=== PATIENT | male | born 1960 | race Caucasian/White ===

== ENCOUNTER 2024-02-27 13:39 | Emergency (ER) | payer MEDICAID ==
[~2024-02-27] VITALS: Ht 165.1 cm; Wt 75.0 kg
[2024-02-27 14:00] LABS: BASOPHILS # (AUTO) 0.1 X10'3 (0-0.2); EOSINOPHILS # (AUTO) 0.2 X10'3 (0-0.9); EOSINOPHILS % (AUTO) 2.2 % (0-6); HEMATOCRIT 46.6 % (42.0-52.0); HEMOGLOBIN 15.8 g/dl (14.0-17.9); LYMPHOCYTES # (AUTO) 2.2 X10'3 (1.1-4.8); LYMPHOCYTES % (AUTO) 30.1 % (21-51); MEAN CORPUSCULAR HEMOGLOBIN 29.9 PG (27.0-31.0); MEAN CORPUSCULAR HGB CONC 33.9 g/dL (33.0-36.5); MEAN PLATELET VOLUME 7.7 FL (7.4-10.4); MONOCYTES # (AUTO) 0.6 X10'3 (0-0.9); MONOCYTES % (AUTO) 7.8 % (2-12); NEUTROPHILS # (AUTO) 4.4 X10'3 (1.8-7.7); NEUTROPHILS % (AUTO) 58.9 % (42-75); PLATELET COUNT 322 X10'3 (140-440); RED CELL DISTRIBUTION WIDTH 14.5 % (11.5-14.5); WHITE BLOOD COUNT 7.4 X10'3 (4.5-11.0)
[2024-02-27 14:18] LABS: ALANINE AMINOTRANSFERASE 26 U/L (12-78); ALBUMIN 3.7 G/DL (3.4-5.0); ALBUMIN/GLOBULIN RATIO 0.9 (1.1-1.5); ALKALINE PHOSPHATASE 70 IU/L (46-116); ANION GAP 6 (8-16); ASPARTATE AMINO TRANSFERASE 19 U/L (10-37); BILIRUBIN,TOTAL 0.6 MG/DL (0.1-1.0); BLOOD UREA NITROGEN 9 MG/DL (7-18); BUN/CREATININE RATIO 9.9 (10.0-20.0); CALCIUM 7.9 MG/DL (8.5-10.1); CHLORIDE 104 MMOL/L (99-107); CREATININE 0.91 MG/DL (0.60-1.10); GLUCOSE 123 MG/DL (70-104); POTASSIUM 3.1 MMOL/L (3.5-5.1); SODIUM 138 MMOL/L (135-145); TOTAL CARBON DIOXIDE 28.3 MMOL/L (24-32); TOTAL PROTEIN 7.7 G/DL (6.4-8.2); eCRCL 74 ML/MIN; eGFR 85 ML/MIN
[2024-02-27 14:24] LABS: PRO BRAIN NATRIURETIC PEPTIDE 434 PG/ML (0-125)
[2024-02-27] MEDS: POTASSIUM BICARB 20meq eff tab 20 MEQ TABLET.EFF PO ONE (16:29)
[2024-02-27] MEDS: aspirin 325mg tablet PO ONE (16:30)
[2024-02-27 16:34] LABS: APTT 25 SECONDS (22-32); PROTHROMBIN TIME 10.9 SECONDS (9.0-12.0)
[2024-02-27 18:08] VITALS: BP 122/97; PULSE 109; RESP 20; TEMP 97.3; O2SAT 95
[2024-02-27] MEDS ORDERED: METO-395 PO (19:18)
== END 2024-02-27 19:45 | disposition home or self-care (01) ==
LOC: ER 13:39
DX: I48.91 Unspecified atrial fibrillation (principal); E87.6 Hypokalemia; F10.90 Alcohol use, unspecified, uncomplicated
CPT/HCPCS: 36415; 71045; 80053; 80320; 83690; 83735; 83880; 84484; 85025; 85610; 85730; 93005; 99285

== ENCOUNTER 2025-11-03 17:44 | Inpatient (IN) | payer MEDICAID ==
[~2025-11-03] VITALS: Ht 165.1 cm; Wt 76.4 kg
[~2025-11-03 17:44] MED LIST: METO-395 PO
[2025-11-03 17:57] VITALS: TEMP 98.8
--- NOTE | 2025-11-03 18:01 | ELECTROCARDIOGRAPH REPORT ---
[facility] Test Date: 2025-11-03 Test Time: 17:53:07 Pat Name: UGO ADAMS Department: EMERGENCY ROOM Patient ID: [id number] Room: Gender: M Material Processor: milton : 1960 Requested By: IBAN NELSON Order Number: [id number] Reading MD: Measurements Intervals [place] Rate: 124 P: 0 [place]: 0 QRS: -22 QRSD: 107 T: 38 QT: 339 QTc: 487 Interpretive Statements Atrial fibrillation RSR' in V1 or V2, probably normal variant Inferior infarct, old Abnormal lateral Q waves Please click the below link to view image of tracing.
[2025-11-03 18:13] LABS: MEAN PLATELET VOLUME 7.6 FL (7.4-10.4); RED CELL DISTRIBUTION WIDTH 13.8 % (11.5-14.5)
--- NOTE | 2025-11-03 18:23 | RADIOLOGY REPORT ---
EXAM: DI CHEST,SINGLE VIEW HISTORY: CP TECHNIQUE: 1 view of the chest COMPARISON: DI CHEST,SINGLE VIEW on DOS: 02/27/24 FINDINGS/IMPRESSION: LUNGS: No pleural effusion, consolidation, or pneumothorax. MEDIASTINUM: Mild cardiomegaly. BONES: No acute osseous abnormality. OTHER: None.
--- NOTE | 2025-11-03 19:04 | Physician Documentation ---
History of Present Illness ~ Chief Complaint: Rapid Heartbeat Stated Complaint: IRREGULAR HEARTRATE Time Seen by MD: 18:04 Mode of Arrival: POV, Ambulatory HPI This is a pleasant 64-year-old gentleman with a known history of atrial fibrillation, status post ablation done in [place], no longer taking his anticoagulation or antiarrhythmics, presents for evaluation of three days of p alpitations, irregular heart rate similar to prior AFib. No obvious trigger, trauma, provocation. No palliating or aggravating factors. He does report hearing changes and whooshing in his ears when he stands up. He denies any chest pain difficulty breathing. Denies any mela syncope. Did not attempt to treat his symptoms. Denies any concerns for tobacco, alcohol or illicit substances use. Medication Reconciliation Allergies: Coded Allergies: No Known Allergies (Unverified , 11/03/25) Scheduled Metoprolol Succinate (Metoprolol Succinate), 1 TAB PO DAILY Past Medical History Past Medical History: Atrial Fibrillation Alcohol Use: Heavy Lives In: Home Review of Systems ROS 10 point review of systems was performed and unless noted above in HPI is negative for acute process/complaint. Physical Exam Vital Signs: Temperature: 98.8, Source: Oral, Heart Rate: 118, Respiratory Rate: 16, BP: 117/86, Pulse Oximetry: 95, Weight: 76.360 Oxygen Flow Rate: 0 Physical Exam GENERAL: Awake, alert, oriented, GCS 15, no apparent distress, non-toxic appearing, answers questions, follows commands appropriately. Examined in bed 10. HEENT: Atraumatic, normocephalic, pupils equal, extraocular muscles intact, sclerae anicteric, mucus membranes moist, oropharynx is clear, no stridor. NECK: supple, full active range of motion, trachea midline, no thyromegaly, no lymphadenopathy, no JVD. CARDIOVASCULAR: Tachycardic and irregularly irregular rate/rhythm, no murmurs/gallops/rubs, Pulses are 2+ in all extremities and symmetric. Capillary refill less than 2 seconds. PULMONARY: Nonlabored, good air movement ,no respiratory distress, speaking in full sentences, clear to auscultation bilaterally, no wheezing, no ronchi, no rales, no accessory muscle use. GASTROINTESTINAL: Soft, non-tender, non-distended, normal active bowel sounds, no organomegaly, no pulsatile masses, no CVA tenderness. NEUROLOGIC: Lucid with normal mental status. Normal facial symmetry. Moves all extremities symmetrically and with purpose. No truncal ataxia. Speech is fluid without evidence of dysarthria or aphasia, no focal deficits appreciated. MUSCULOSKELETAL: There is full range of motion of all extremities. There is no joint pain or joint swelling or joint erythema. There is no muscle pain or tend erness or swelling. EXTREMITIES: warm, well-perfused, no cyanosis, no clubbing, no edema, no acute deformities. Skin: warm, dry, no rashes or lesions, no jaundice, no petechiae orpurpura. No ecchymosis. PSYCHIATRIC: Normal affect, normal insight, normal concentration. Focused exam: [] Progress Results/Orders Results/Orders Orders - DUSTIN HAYWOOD DO Magnesium Sulf-Water 2g/50ml (Magnesium (11/03/25 19:00) Metoprolol Tartrate Inj (Lopressor Iv) (11/03/25 19:00) Completed Orders - DUSTIN HAYWOOD DO Normal Saline 1000ml (0.9% Sodium Chlori (11/03/25 19:00) Medications Received in ER Medications (Trade) Dose Ordered Sig/Cristhian Route PRN Reason Start Time Stop Time Status Last Admin Dose Admin Sodium Chloride 1,000 ml @ 1,000 mls/hr ONCE ONCE IV 11/03/25 19:00 11/03/25 19:59 DC 11/03/25 19:33 1,000 MLS/HR Magnesium Sulfate 50 ml @ 25 mls/hr ONCE ONCE IV 11/03/25 19:00 11/03/25 20:59 11/03/25 19:33 25 MLS/HR (Lopressor IV) 5 mg Q15M PRN IV HR>100 11/03/25 19:00 11/03/25 19:53 5 MG Vital Signs 11/03/25 11/03/25 11/03/25 11/03/25 17:57 18:04 18:13 19:46 Temp 98.8 Pulse 120 118 110 Resp 20 16 16 16 B/P (MAP) 117/86 117/86 (96) 111/83 (92) Pulse Ox 97 95 95 O2 Flow Rate 0 0 11/03/25 11/03/25 19:53 20:03 Pulse 111 85 Resp 16 B/P (MAP) 115/83 (94) Pulse Ox 97 Laboratory Tests Test 11/03/25 18:01 White Blood Count 9.5 Red Blood Count 5.43 Hemoglobin 16.0 Hematocrit 47.5 Mean Corpuscular Volume 87.6 Mean Corpuscular Hemoglobin 29.4 Mean Corpuscular Hemoglobin Concent 33.6 Red Cell Distribution Width 13.8 Platelet Count 369 Mean Platelet Volume 7.6 Neutrophils (%) (Auto) 60.4 Lymphocytes (%) (Auto) 27.6 Monocytes (%) (Auto) 9.0 Eosinophils (%) (Auto) 2.3 Basophils (%) (Auto) 0.7 Neutrophils # (Auto) 5.7 Lymphocytes # (Auto) 2.6 Monocytes # (Auto) 0.9 Eosinophils # (Auto) 0.2 Basophils # (Auto) 0.1 CBC Comment Sodium Level 141 Potassium Level 3.9 Chloride Level 105 Carbon Dioxide Level 26.9 Anion Gap 9 Blood Urea Nitrogen 13 Creatinine 0.99 Estimated GFR/1.73 m2 76 BUN/Creatinine Ratio 13.1 Glucose Level 110 H Calcium Level 8.8 Troponin I High Sensitivity 10 Pro-B-Type Natriuretic Peptide 246 H Albumin 4.0 Chemistry Comments EKG/XRAY/CT/US/VASC/MRI EKG : Additional Comment EKG was obtained and interpreted by myself shows atrial fibrillation, rapid ventricular response, narrow QRS, no QT prolongation, normal axis, no STEMI. His QTC is 487, which is borderline. His axis for QRS or-22, borderline left. Medical Decision Making Additional information obtaine: old records Findings Facility Status: ED Holds, [facility] process The plan was discussed with the patient, who demonstrates clear understanding of the plan and is in agreement with the plan unless otherwise noted in the chart. All questions have been answered, all concerns were addressed unless otherwise documented. I was available throughout their ED stay for frequent reassessment and questions. Differential Diagnoses (considered and possible or likely): [Recurrence of idiopathic AFib versus dehydration, electrolyte derangement, urinary tract infection, pneumonia, occult bacteremia, ACS, CHF.] ??Differential Diagnoses (considered and unlikely, not requiring evaluation currently): [Less likely PE although that had also been considered.] MDM Data Please see HPI for the following: Independent Historians and external Records Review. Historian: [Patient] Independent Historians: ?[Records reviewed] Medication Management: [Reviewed medication list] Social History and determinants: [Reviewed] Please see the body of the note for the following: Any independent interpretations of ECG, imaging studies. All vitals signs/haemodynamics, ordered tests were independently reviewed and interpreted by myself. Nursing triage complaint and vitals reviewed, additional nursing notes were reviewed as available and I agree unless otherwise noted or documented in contradiction in the chart Vital Signs: Independently reviewed Labs: Independently interpreted Imaging: Independently interpreted Old Medical Records: Independently reviewed, see HPI for relevant summary and information Pulse Oximetry: [95%] interpreted as [normal on room air] by me [Frame Opener: Tachycardic and irregularly irregular Rate, Regular rhythm, no ectopy, AFib with a RVR. reviewed and interpreted by me] Additionally notably showing: [Hemodynamics reviewed. Tachycardic on presentation, he has responded well to metoprolol. No evidence of hypotension respiratory distress. CBC normal. Chemistry is unremarkable. Troponin is normal. BNP is slightly elevated. Chest x-ray was obtained. On my independent interpretation, there is a midline trachea, questionable versus mild cardiomegaly, no focal infiltrates, grossly normal bony structures. Radiology interpretation confirms mild cardiomegaly.] Tests considered but not ordered include: [Echocardiogram and further AFib with a RVR workup can be done on an inpatient basis] Social Determinants of Health Impact: Patient was evaluated in [facility] [place] access to healthcare due to below par ratio of patient to medical providers. [] Comorbid Conditions Impacting Present Evaluation and Care/Treatment: [History of AFib post ablation] Management Discussions with other Healthcare Providers: [Hospitalist regarding admission] Treatment and Disposition Medication Management (Given or considered): [Metoprolol, magnesium]. See EMR for details Consideration for Hospitalization/Escalation/Deescalation of Care: Admission for observation is necessary for further workup of his recurrence of AFib with a RVR. ?ED Course:?[No clinical deterioration] ?Shared decision making:?[] Code status:?FULL Please see the full Electronic Medical Record for full details of nursing documentation, medications list, other records of complete past medical history and conditions, vital signs, laboratory studies, and any radiologic study interpretations by radiologists. Portions of this note were completed using [employer] dictation software and as a result there may exist minor errors in spelling. I have reviewed elements of past family and social history and agree as included in note. Differential Dx:Considerations: Include: other (See body of the main note for d ifferential diagnosis) Differential Dx:Considerations: Unlikely other Departure Disposition: ADMITTED INPATIENT Admitted to Inpatient Unit: to hospitalist Impression: Primary Impression: Atrial fibrillation with rapid ventricular response Condition: Improved Referrals: NO PRIMARY CARE PROVIDER (PCP) Critical Care Note Critical Care Note CRITICAL CARE TIME: [35 ] minutes Treatments/Evaluations: Close monitoring and treatment of unstable vital signs, cardiorespiratory, and neurologic status, while maintaining tight balance of fluid, respiratory, and cardiac interventions. This time includes discussing the case with the patient and the patients family. This time does not include all procedures stated elsewhere in this record. This time also includes reviewing old records, labs and radiological studies. This time includes examining and re- examining the patient. Additionally, this time also includes arranging care with admitting and consulting physicians. Signature Scribe Signature: No scribe Attestation: The note accurately reflects work and decisions made by me.Dustin Haywood DO 11/03/25 19:04 DUSTIN HAYWOOD DO Nov 03, 2025 19:04
[2025-11-03] MEDS: magnesium sulf-water 2g/50mL 50 ML IV ONE (19:33)
[2025-11-03] MEDS: normal saline 1000ml 1,000 ML IV ONE (19:33)
[2025-11-03 19:35] LABS: CREATININE 0.99 MG/DL (0.60-1.10); PRO BRAIN NATRIURETIC PEPTIDE 246 PG/ML (0-125); TOTAL CARBON DIOXIDE 26.9 MMOL/L (24-32); eCRCL 66 ML/MIN; eGFR 76 ML/MIN
[2025-11-03] MEDS: metoprolol tartrate 1mg/ml inj IV PRN (19:53)
[2025-11-03] MEDS ORDERED: magnesium hydroxide 30ml (MOM) UD suspension PO PRN (21:15)
[2025-11-03] MEDS ORDERED: potassium Cl 40MEQ/1/2NS 520ml 520 ML IV PRN (21:15)
[2025-11-03] MEDS ORDERED: magnesium sulf-water 4G/100mL 100 ML IV PRN (21:15)
[2025-11-03] MEDS ORDERED: magnesium sulf-water 2g/50mL 50 ML IV PRN (21:15)
[2025-11-03] MEDS ORDERED: magnesium Cl slow-release 64mg tablet PO PRN (21:15)
[2025-11-03] MEDS ORDERED: ondansetron/PF 4mg/2ml inj IV PRN (21:15)
[2025-11-03] MEDS ORDERED: mag hydrox/Alum hydrox/simeth 30ml oral suspension PO PRN (21:15)
[2025-11-03] MEDS ORDERED: potassium Cl 20 mEq SR tablet PO PRN ×2 (21:15)
[2025-11-03 21:46] LABS: LEUKOCYTE ESTERASE ,URINE NEGATIVE (Neg); NITRITES, URINE NEGATIVE (Neg); OCCULT BLOOD,URINE NEGATIVE (Neg)
[2025-11-03 21:49] LABS: UA COLLECTION TYPE URINAL
[2025-11-03] MEDS: PERFLUTREN PROTEIN-A MICROSPHR (Optison) 0.22 MG/ML 3ML VIAL IV ONE (21:50)
[2025-11-03 21:59] LABS: APTT 26 SECONDS (22-32); INR 1.0 INR
[2025-11-03 22:01] LABS: CREATININE 0.81 MG/DL (0.60-1.10); PHOSPHORUS 4.3 MG/DL (2.3-4.5); TOTAL CARBON DIOXIDE 26.4 MMOL/L (24-32); eCRCL 81 ML/MIN; eGFR > 90 ML/MIN
--- NOTE | 2025-11-03 22:14 | HISTORY AND PHYSICAL-Residence ---
History & Physical Providers to Resident Creating Document: SAVANNAH BAKER, RES ~ History of Present Illness Reason for Admit\Complaint: Palpitation History of Present Illness 65-year-old male with history of paroxysmal AFib came to the ER with palpitations. He states that he has palpitations for the past 3 days. He had 2 ablations in the past, 1 in 2017 and 1 in November 2024 in [place]. His ticket taker ferryboat is Dr. Goddard. He states that he stopped taking Eliquis and antiarrhythmic in May 2025 as he thought his heart was fine. He has no history of COPD or OSWALDO. He does not use CPAP. He says that he was snoring in the past, but not lately. He also reports chronic ringing in ears which has worsened for the past 3 days. He denies chest pain, shortness of breath, dizziness, confusion, syncope, hematochezia, melena, fever, chills, burning micturition, frequency, urgency. His PCP is at [facility], and he is not sure about the name of the PCP His ticket taker ferryboat is Dr. Goddard, he last saw him 2 years ago He lives with his significant other at home He can ambulate independently Allergies: Coded Allergies: No Known Allergies (Unverified , 11/03/25) Home Medications Home Medications Active Metoprolol Succinate 25 Mg Tab.sr.24h 1 Tab PO DAILY 30 Days Past Medical History Past Medical History Paroxysmal AFib s/p 2 ablations Past Surgical History Surgical History Comment Orthopedic surgery Past Social History Social History Comment He denies smoking cigarettes He drinks 2 beers around 2-3 times a week He smokes marijuana almost every day for 40 years His PCP is at [facility], and he is not sure about the name of the PCP His ticket taker ferryboat is Dr. Goddard, he last saw him 2 years ago He lives with his significant other at home He can ambulate independently Alcohol Use: Heavy Lives In: Home ROS ROS Constitutional: No fever, chills, dizziness, weight gain or loss Eyes: No pain, erythema, discharge, blurring of vision ENT: Reports ringing in ears, No sore throat, epistaxis, tinnitus Cardiovascular: Reports palpitations, No chest pain, syncope, lower extremity edema, paroxysmal nocturnal dyspnea Respiratory: No Shortness of breath and cough, No hemoptysis. Gastrointestinal: No Abdominal pain, vomiting,nausea,constipation,diarrhea. Normal appetite. No hematemesis or melena. Musculoskeletal: No Swelling, pain in bilateral lower legs. Integumentary: No change in skin, hair, nails. No swelling, bruising, abrasions Neurologic: No weakness,No headache, neck pain, numbness or tingling of the extremities, Psychiatric: No delusions, depression, loss of interest in normal activity or change in sleep pattern, hallucinations, suicidal ideations Endocrine: No fatigue, no weakness. polydipsia, polyuria, change in appetite, heat or cold intolerance, sweating, dry skin Hematological: No bleeding, petechiae, bruising Allergies: No asthma or urticaria Exam Vitals: Vital Signs Date Time Temp Pulse Resp B/P (MAP) Pulse Ox O2 Delivery O2 Flow Rate FiO2 11/03/25 21:23 91 20 121/92 (102) 94 11/03/25 18:13 0 11/03/25 17:57 98.8 General: Awake , alert, and oriented x4, resting comfortably in the bed, in no acute distress HEENT: Atraumatic, normocephalic, EOMI, anicteric sclera ; pink conjunctiva Neck: Trachea midline. Supple, full range of motion, no JVD Cardiac: Tachycardic and irregular rhythm, with no murmurs all over the precordium. Respiratory: Equal breath sounds bilaterally, no tachypnea, no wheezing ,rub or rales, Chest wall is symmetric and without deformity. Gastrointestinal: Abdomen symmetric, non-distended, soft, non-tender, normal bowel sounds x4 quadrant, normoactive, no hepatosplenomegaly Musculoskeletal: No pedal edema, no cyanosis Neurological: Speech is clear, alert, and oriented x 4. No motor or sensory deficit, deep tendon reflexes normal, cerebellar intact. Cranial nerves II-XII intact. Skin: Warm and dry Diagnostic Data Last Recorded Lab Results: [id number] Diagnostic Data: Laboratory Tests Test 11/03/25 21:35 Prothrombin Time 10.3 SECONDS (9.0-12.0) INR International Normalized Ratio 1.0 INR Activated Partial Thromboplast Time 26 SECONDS (22-32) Coagulation Comments Advance Care Planning Advanced Care plannin - 30 Minutes (Full code) Additional Plan Paroxysmal AFib with RVR EKG shows AFib with rate 124, with no ST/T abnormalities He had 2 ablations in the past, 1 in 2018 and 1 in November 2024 in [place] He stopped taking Eliquis and metoprolol succinate in May 2025 He denies COPD and OSWALDO Chest x-ray shows mild cardiomegaly with no pleural effusion, consolidation or pneumothorax Electrolytes are normal TSH is normal His ticket taker ferryboat is Dr. Goddard Plan: He was given a 1 time dose of IV metoprolol tartrate 5 mg in the ER Started metoprolol tartrate 12.5 mg q.12h in a.m. Started Eliquis 5 mg Q12h, Demetrius Vasc score -1 Follow up echo Continue telemetry monitoring Substance use disorder Alcohol use disorder Follow up ethyl alcohol and urine drug screen business services analyst and Substance use navigator consulted Alcohol withdrawal protocol in place I spent a total of 18 minutes reviewing various resuscitative measures/ACP with the patient. The patient decided to be full code. Code status: Full code DVT prophylaxis: Eliquis Pain management: Tylenol p.r.n. Diet/nutrition: Heart healthy Prognosis: Guarded Disposition: Continue telemetry monitoring, PT eval and DC plan Resident MD attestation: The patient note has been reviewed and supervised by senior residents PGY-2/ PGY-3. Patient was seen, examined and discussed with attending physician, Dr. Mathew Baker MD Internal Medicine resident, PGY-1 We saw and discussed the case with the resident team I agree with assessment and plan as documented Thank you Date of Service: Nov 03, 2025 Billing Provider: ANGELI ORTIZ MD, PREETHI, RES Nov 03, 2025 22:14 ANGELI ORTIZ MD Nov 04, 2025 11:07
[2025-11-04 01:51] LABS: MEAN PLATELET VOLUME 7.9 FL (7.4-10.4); RED CELL DISTRIBUTION WIDTH 14.1 % (11.5-14.5)
[2025-11-04 02:01] LABS: CHOL/HDL RATIO 2.9 (0.00-4.99); CREATININE 0.77 MG/DL (0.60-1.10); LDL CHOLESTEROL 135 MG/DL (50-100); TOTAL CARBON DIOXIDE 27.2 MMOL/L (24-32); eCRCL 85 ML/MIN; eGFR > 90 ML/MIN
[2025-11-04 06:54] LABS: ETHANOL < 10 MG/DL (<10)
[2025-11-04] MEDS: docusate sod 100mg capsule PO SCH (08:00)
[2025-11-04] MEDS: K and/or MAG REPLACEMENT MC SCH (08:00)
[2025-11-04] MEDS: folic acid 1mg/0.2ml inj IV SCH (08:21)
[2025-11-04] MEDS: multivitamins, therapeutics tablet PO SCH (08:21)
[2025-11-04] MEDS: metoprolol tartrate 12.5mg (1/2 tablet) PO SCH (08:25)
[2025-11-04] MEDS: thiamine 100mg/ml 2ml inj. IV SCH (08:31)
[2025-11-04 08:33] VITALS: BP 112/79; PULSE 89; O2SAT 97
[2025-11-04 09:09] LABS: URINE AMPHETAMINE SCREEN NEGATIVE (Neg); URINE BARBITUATE SCREEN NEGATIVE (Neg); URINE BENZODIAZEPINES SCREEN NEGATIVE (Neg); URINE CANNABINOID SCREEN POSITIVE (Neg); URINE COCAINE SCREEN NEGATIVE (Neg); URINE METHADONE SCREEN NEGATIVE (Neg); URINE OPIATE SCREEN NEGATIVE (Neg); URINE PHENCYCLIDINE SCREEN NEGATIVE (Neg)
[2025-11-04 09:53] VITALS: RESP 14
--- NOTE | 2025-11-04 18:54 | DISCHARGE SUMMARY-Residence ---
Discharge Summary Providers to Resident Creating Document: MARCELO MCCORD, RES ~ Discharge Summary Admission Diagnosis: A-FIB RVR Hospital Course DATE OF ADMISSION: 2024 DATE OF DISCHARGE: 11/04/2025 patient left AMA Hospital course: 65-year-old male with history of paroxysmal AFib came to the ER with palpitations. He states that he has palpitations for the past 3 days. He had 2 ablations in the past, 1 in 2017 and 1 in November 2024 in [place]. His slip bridge operator is Dr. Goddard. He states that he stopped taking Eliquis and antiarrhythmic in May 2025 as he thought his heart was fine. He has no history of COPD or OSWALDO. He does not use CPAP. He says that he was snoring in the past, but not lately. He also reports chronic ringing in ears which has worsened for the past 3 days. He denies chest pain, shortness of breath, dizziness, confusion, syncope, hematochezia, melena, fever, chills, burning micturition, frequency, urgency. His PCP is at [facility], and he is not sure about the name of the PCP His slip bridge operator is Dr. Goddard, he last saw him 2 years ago He lives with his significant other at home He can ambulate independently Patient admitted with following workup and treatment Paroxysmal AFib with RVR EKG shows AFib with rate 124, with no ST/T abnormalities He had 2 ablations in the past, 1 in 2017 and 1 in November 2024 in [place] He stopped taking Eliquis and metoprolol succinate in May 2025 He denies COPD and OSWALDO Chest x-ray shows mild cardiomegaly with no pleural effusion, consolidation or p neumothorax Electrolytes are normal TSH is normal His slip bridge operator is Dr. Goddard Plan: He was given a 1 time dose of IV metoprolol tartrate 5 mg in the ER Started metoprolol tartrate 12.5 mg q.12h in a.m. Demetrius Vasc score one Substance use disorder Alcohol use disorder Follow up ethyl alcohol and urine drug screen assistant guest services manager and Substance use navigator consulted Alcohol withdrawal protocol in place Today morning on 11/04/2025 patient wants to leave AMA however we talked with the patient regarding her current symptoms diagnoses and treatment, he is awake alert oriented and understand the consequence of his living. Patient left AGAINST MEDICAL ADVICE after through explanation of potential serious consequences including the risk of . Discharge Diagnosis\Comment: Paroxysmal AFib with RVR Substance use disorder Alcohol use disorder Operations\Procedures: none Consultants: None Complications: None Condition on DC: Unstable Discharge Summary: See hospital course *Problems/Diagnosis: (1) Atrial fibrillation with rapid ventricular response Status: Acute Total Time Spent on D/C: Up to 30 Minutes Date of Service: Nov 04, 2025 Billing Provider: RG SHANKAR MD,MARCELO, RES Nov 04, 2025 18:54
[2025-11-04] MEDS ORDERED: enoxaparin 40mg/0.4ml syringe SQ SCH (20:00)
== END 2025-11-04 11:20 | disposition left against medical advice (07) | DRG 201 ==
LOC: ER 17:45 → ED HOLD 21:12 → EDBEDREQ 11-04 15:06
PROVIDERS: ADMIT Internal Medicine; ATTEND Family Medicine
DX: I48.0 Paroxysmal atrial fibrillation (principal); F10.90 Alcohol use, unspecified, uncomplicated; Y90.9 Presence of alcohol in blood, level not specified; Z53.29 Procedure and treatment not carried out because of patient's decision for other reasons
CPT/HCPCS: 36415; 71045; 80048; 80053; 80061; 80305; 80320; 81003; 83036; 83735; 83880; 84100; 84443; 84484; 85025; 85610; 85730; 93005; 96365; 96375; 99291; G0378; J3411; J3490; J7030